=== PATIENT | male | born 2000 | race Caucasian/White ===

== ENCOUNTER 2019-01-03 18:25 | Emergency (ER) | payer OTHER ==
[~2019-01-03] VITALS: Ht 185.4 cm; Wt 81.7 kg
[2019-01-03 18:33] VITALS: BP 140/71
[2019-01-03] MEDS ORDERED: CLONAZEPAM 0.50.5 M1 PO ×2 (18:39→18:49)
[2019-01-03] MEDS ORDERED: PROZAC20 M1 PO (18:40)
== END 2019-01-03 18:57 | disposition home or self-care (01) ==
LOC: M.ERS 18:25
DX: F41.9 Anxiety disorder, unspecified (principal); Z76.0 Encounter for issue of repeat prescription; F32.9 Major depressive disorder, single episode, unspecified; F17.210 Nicotine dependence, cigarettes, uncomplicated

== ENCOUNTER 2019-03-10 12:50 | Emergency (ER) | payer OTHER ==
[~2019-03-10] VITALS: Ht 185.4 cm; Wt 96.6 kg
[~2019-03-10 12:50] MED LIST: CLONAZEPAM 0.50.5 M1 PO; PROZAC20 M1 PO
[2019-03-10] MEDS ORDERED: ATIVAN0.5 M1 PO (14:22)
[2019-03-10 14:35] VITALS: BP 108/83
== END 2019-03-10 14:36 | disposition home or self-care (01) ==
LOC: M.ERS 12:50
DX: F41.0 Panic disorder [episodic paroxysmal anxiety] (principal); F32.9 Major depressive disorder, single episode, unspecified; F90.9 Attention-deficit hyperactivity disorder, unspecified type

== ENCOUNTER 2019-05-25 17:55 | Emergency (ER) | payer OTHER ==
[~2019-05-25] VITALS: Ht 188 cm; Wt 86.2 kg
[~2019-05-25 17:55] MED LIST changes: +ATIVAN0.5 M1 PO
[2019-05-25] MEDS ORDERED: KLONOPIN1 MG PO ×2 (18:06→18:16)
[2019-05-25] MEDS ORDERED: VISTARIL 25 MG25 M1 PO (18:51)
[2019-05-25 19:09] VITALS: BP 133/81
== END 2019-05-25 19:09 | disposition home or self-care (01) ==
LOC: M.ERS 17:55
DX: F41.9 Anxiety disorder, unspecified (principal); F90.9 Attention-deficit hyperactivity disorder, unspecified type; F32.9 Major depressive disorder, single episode, unspecified; F17.210 Nicotine dependence, cigarettes, uncomplicated

== ENCOUNTER 2019-08-27 10:16 | Emergency (ER) | payer OTHER ==
[~2019-08-27] VITALS: Ht 185.4 cm; Wt 96.6 kg
[~2019-08-27 10:16] MED LIST changes: +KLONOPIN1 MG PO; +VISTARIL 25 MG25 M1 PO
[2019-08-27] MEDS ORDERED: PROZAC40 MG PO (10:49)
[2019-08-27] MEDS ORDERED: CLONAZEPAM 0.50.5 M1 PO (10:49)
[2019-08-27 11:27] VITALS: BP 154/99
== END 2019-08-27 11:28 | disposition home or self-care (01) ==
LOC: M.ERS 10:16
DX: F41.9 Anxiety disorder, unspecified (principal); F90.9 Attention-deficit hyperactivity disorder, unspecified type; F32.9 Major depressive disorder, single episode, unspecified; Z79.899 Other long term (current) drug therapy